=== PATIENT | male | born 1995 | race African-American/Black ===

== ENCOUNTER 2018-10-05 10:47 | Emergency (ER) | payer OTHER ==
[~2018-10-05] VITALS: Ht 177.8 cm; Wt 88.5 kg
[2018-10-05] MEDS ORDERED: CYCLOBENZAPRINE5 MG PO (11:49)
[2018-10-05] MEDS ORDERED: MOBIC7.5 MG PO (11:49)
[2018-10-05 12:00] VITALS: BP 132/74
== END 2018-10-05 12:00 | disposition home or self-care (01) ==
LOC: ER 10:47
DX: S16.1XXA Strain of muscle, fascia and tendon at neck level, initial encounter (principal); F17.210 Nicotine dependence, cigarettes, uncomplicated; V89.2XXA Person injured in unspecified motor-vehicle accident, traffic, initial encounter; Y93.89 Activity, other specified; Y92.89 Other specified places as the place of occurrence of the external cause; Y99.8 Other external cause status